=== PATIENT | female | born 1985 | race American Indian/Alaskan Native ===

== ENCOUNTER 2017-06-24 22:58 | Outpatient (CLI) | payer MEDICAID ==
[2017-06-24] MEDS ORDERED: LACTATED RINGERS 500 ML IV ONE (23:09)
[2017-06-24 23:14] VITALS: BP 134/68
[2017-06-25 00:17] LABS: Bilirubin,Urine NEG (Negative); Blood,Urine NEG (Negative); Color,Urine Straw (Yellow); Nitrite,Urine NEG (Negative); Protein,Urine <15 mg/dL mg/dL (Negative); Urobilinogen,Urine < 2.0 mg/dL (<2.0)
== END 2017-06-25 00:35 | disposition home or self-care (01) ==
LOC: TRG 22:58
PROVIDERS: ATTEND Obstetrics & Gynecology Gynecology
DX: O47.03 False labor before 37 completed weeks of gestation, third trimester (principal); Z3A.32 32 weeks gestation of pregnancy
CPT/HCPCS: 59025; 81001; J7120

== ENCOUNTER 2017-07-03 16:37 | Outpatient (CLI) | payer MEDICAID ==
[2017-07-03 17:25] LABS: Bacteria,Urine 1+ /HPF (Negative); Bilirubin,Urine NEG (Negative); Blood,Urine NEG (Negative); Color,Urine Yellow (Yellow); Mucus,Urine FEW /HPF; Nitrite,Urine NEG (Negative); Protein,Urine <15 mg/dL mg/dL (Negative); Urobilinogen,Urine < 2.0 mg/dL (<2.0)
[2017-07-03 17:40] VITALS: BP 145/76
[2017-07-03 17:43] LABS: Hematocrit 27.9 % (30.3-42.9); Hemoglobin 9.1 gm/dl (10.1-14.3); Mean Corpuscular HGB Conc 33 % (30-34); Mean Corpuscular Volume 74 fl (79-97); Platelet Count 262 K/mm3 (140-440); Red Blood Count 3.77 M/mm3 (3.65-5.03); Red Cell Distribution Width 17.6 % (13.2-15.2)
[2017-07-03 17:53] LABS: Mean Corpuscular Hemoglobin 24 pg (28-32)
[2017-07-03 17:55] LABS: Alanine Aminotransferase 21 units/L (7-56); Uric Acid 4.2 mg/dL (3.5-7.6)
[2017-07-03] MEDS ORDERED: TYLENOL PO ONE (18:00)
== END 2017-07-03 18:15 | disposition home or self-care (01) ==
LOC: TRG 16:37
PROVIDERS: ATTEND Obstetrics & Gynecology
DX: Z34.92 Encounter for supervision of normal pregnancy, unspecified, second trimester (principal); Z3A.25 25 weeks gestation of pregnancy
CPT/HCPCS: 36415; 59025; 81001; 82565; 83615; 84450; 84460; 84550; 85027

== ENCOUNTER 2017-07-08 13:56 | Observation (INO) | payer MEDICAID ==
[2017-07-08] MEDS ORDERED: LACTATED RINGERS 500 ML IV ONE (14:16)
--- NOTE | 2017-07-08 14:27 | History and Physical Report ---
History of Present Illness Date of examination: 07/08/17 Chief complaint: Painful contractions with pelvic pressure History of present illness: 31-year-old at 34+6 wks is sent from the clinic for cerclage removal, she is a [facility] patient. Patient with painful contractions and severe pelvic pressure. An attempt at cerclage removal in the office was unsuccessful due to patient discomfort, she was therefore sent to the hospital for cerclage removal. course has been unremarkable. 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 denies: smoking, alcohol abuse, prescription drug abuse, IV drug use - Obstetrical History Expected Date of Delivery: 08/13/17 Actual Gestation: 34 Week(s) 6 Day(s) : 5 Medications and Allergies Allergies Allergy/AdvReac Type Severity Reaction Status Date / Time sulfamethoxazole Allergy Anaphylaxis Verified 04/17/17 10:49 [From Bactrim] trimethoprim [From Bactrim] Allergy Anaphylaxis Verified 04/17/17 10:49 Home Medications Medication Instructions Recorded Confirmed Last Taken Type Vit-Fe Fumar-FA [ 1 each PO QDAY #30 tablet 10/09/13 06/24/17 06/24/17 Rx Vitamin] 1 tab Acetaminophen [Tylenol Extra 500 mg PO PRN PRN 04/17/17 06/24/17 04/17/17 11:30 History Strength] Omeprazole 20 mg PO QDAY 04/17/17 06/24/17 04/17/17 History Active Meds: Active Medications Lactated Ringer's (Lactated Ringers) 1,000 mls @ 125 mls/hr IV DIRECT BARBER Lactated Ringer's (Lactated Ringers) 500 mls @ 999 mls/hr IV BOLUS ONE Stop: 07/08/17 14:46 Review of Systems Constitutional: no fever, no chills, no fatigue, no weakness Cardiovascular: no chest pain, no orthopnea, no palpitations, no syncope, no lightheadedness, no shortness of breath, no dyspnea on exertion, no high blood pressure Respiratory: no cough, no excessive sputum, no shortness of breath, no dyspnea on exertion Gastrointestinal: no abdominal pain, no nausea, no vomiting, no heartburn, no indigestion Genitourinary: pelvic pain (pelvic pressure), contractions, no vaginal bleeding , no vaginal discharge, no leakage of fluid - Vital Signs Vital signs: Vital Signs Pulse Pulse Ox 103 H 97 07/08/17 14:08 07/08/17 14:08 Temp Pulse Resp BP Pulse Ox 107 H 98 07/08/17 14:18 07/08/17 14:18 - Physical Exam Cardiovascular: Regular rate, Normal S1, Normal S2 Lungs: Positive: Clear to auscultation, Normal air movement Abdomen: Positive: normal appearance, soft. Negative: distention, tenderness, guarding, rigidity Genitourinary (Female): Positive: normal external genitalia Vulva: both: normal Uterus: Positive: enlarged (EFW ~ 3200) Adnexa: both: normal Extremities: Positive: normal - Obstetrical FHR: category 1 Cervical Dilatation: 0 Results All other labs normal. Assessment and Plan A: 31 y/o at 34+6 wks with pelvic pressure and cerclage -Cat 1 tracing P: -Obtain IV access -Will try removal of cerclage under IV analgesia -If unsuccessful, we'll have to discuss with anesthesia about other options including removal in the OR -Consider IV steroid course -Obtain records - Patient Problems (1) 34 weeks gestation of Current Visit: Yes Status: Acute (2) Cervical cerclage suture present in third trimester Current Visit: Yes Status: Acute (3) Feeling pelvic pressure during in third trimester, antepartum Current Visit: Yes Status: Acute (4) Maternal morbid obesity in third trimester, antepartum Current Visit: Yes Status: Acute
[2017-07-08] MEDS ORDERED: SUBLIMAZE IV ONE (14:46)
[2017-07-08] MEDS ORDERED: SUBLIMAZE ONE (14:51)
--- NOTE | 2017-07-08 15:02 | Post Operative Note ---
Pre-op diagnosis: cerclage removal Post-op diagnosis: same Findings: Cerclage string tied at 12:00 with what appears to be PDS Procedure: Uncomplicated Cerclage removal with IV analgesics Anesthesia: other (IV fentanyl) Surgeon: NAYELY VELAZQUEZ Estimated blood loss: minimal Pathology: none Condition: stable Disposition: no change
[2017-07-08] MEDS: LACTATED RINGERS 1,000 ML IV SCH ×2 (16:03→23:08)
[2017-07-08] MEDS ORDERED: ZOFRAN IV PRN (17:05)
[2017-07-08] MEDS ORDERED: COLACE PO PRN (17:05)
[2017-07-08] MEDS ORDERED: SENOKOT S PO PRN (17:05)
[2017-07-08] MEDS ORDERED: TYLENOL PO PRN (17:05)
[2017-07-08] MEDS ORDERED: AMBIEN PO PRN (17:05)
[2017-07-08] MEDS ORDERED: SODIUM CHLORIDE FLUSH SYRINGE 10 ML IV PRN (17:05)
[2017-07-08] MEDS ORDERED: ALUM-MAG HYDROX-SIMETH 200-200-20MG/5ML PO PRN (17:05)
[2017-07-08] MEDS ORDERED: MYLICON PO PRN (17:05)
[2017-07-08] MEDS ORDERED: MILK OF MAGNESIA PO PRN (17:05)
--- NOTE | 2017-07-08 17:13 | Event Note ---
Date: 07/08/17 Patient s/p cerclage removal. I can find no record of prior BMZ course. Plan at this point is to start BMZ course.
[2017-07-08] MEDS ORDERED: CELESTONE SOLUSPAN IM SCH (18:00)
[2017-07-08] MEDS ORDERED: D5LR 1,000 ML IV SCH (18:00)
[2017-07-08 19:43] LABS: Basophils % (Auto) 0.2 % (0.0-1.8); Eosinophils % (Auto) 0.3 % (0.0-4.3); Hematocrit 29.1 % (30.3-42.9); Hemoglobin 9.6 gm/dl (10.1-14.3); Lymphocytes # (Auto) 1.8 K/mm3 (1.2-5.4); Lymphocytes % (Auto) 17.2 % (13.4-35.0); Mean Corpuscular HGB Conc 33 % (30-34); Mean Corpuscular Volume 75 fl (79-97); Monocytes # (Auto) 0.4 K/mm3 (0.0-0.8); Monocytes % (Auto) 4.4 % (0.0-7.3); Platelet Count 241 K/mm3 (140-440); Red Cell Distribution Width 17.5 % (13.2-15.2)
[2017-07-08 19:47] LABS: Mean Corpuscular Hemoglobin 25 pg (28-32)
--- NOTE | 2017-07-08 23:28 | Event Note ---
Date: 07/08/17 Status post cerclage removal, resting in bed comfortably. She has no contractions and feeling much better. She is s/p celestone course and will complete this tomorrow. On exam, no cervical change. Patient desired discharge home Discharge home at this time, she will follow up tomorrow for repeat Celestone shot
[2017-07-08 23:35] VITALS: BP 119/60
--- NOTE | 2017-07-08 23:35 | Discharge Summary ---
Providers - Providers Date of Admission: 07/08/17 18:51 Date of discharge: 07/08/17 Attending physician: NAYELY VELAZQUEZ Primary care physician: NAYELY VELAZQUEZ Hospitalization Reason for admission: IUP - (IUP at 34+5 weeks), observation (here for cerclage removal), other Hospital course: 31-year-old at 34+6 wks was sent from the clinic for cerclage removal, she is a [facility] patient. Patient with painful contractions and severe pelvic pressure. An attempt at cerclage removal in the office was unsuccessful due to patient discomfort, she was therefore sent to the hospital for cerclage removal. course has been unremarkable. She is status post in 2013 for breech and desires Cerclage was removed and under IV sedation Patient was started on steroid course She was observed on the floor and had no contractions x ~ 8 hrs She is discharged home in stable condition Condition at discharge: Good Disposition: DC-01 TO HOME OR SELFCARE - Discharge Diagnoses (1) 34 weeks gestation of Status: Acute (2) Cervical cerclage suture present in third trimester Status: Acute (3) Feeling pelvic pressure during in third trimester, antepartum Status: Acute (4) Maternal morbid obesity in third trimester, antepartum Status: Acute Plan - Provider Discharge Summary Activity: routine Diet: routine Instructions: other (she will need to return to the hospital on 07/09/17 to complete her steroid course) Additional instructions: [] Smoking cessation referral if applicable(refer to patient education folder for contact #) [] Refer to [facility] Booklet Call your doctor immediately for: * Fever > 100.5 * Heavy vaginal bleeding ( >1 pad per hour) * Severe persistent headache * Shortness of breath * Reddened, hot, painful area to leg or breast * Drainage or odor from incision. * Keep incision clean and dry at all times and follow doctor's instructions regarding bathing/showering - Follow up plan Follow up: EVERETT MARTINEZ MD [Staff Physician] - 7 Days
[2017-07-09] MEDS ORDERED: PRENATAL VITAMIN PO SCH (10:00)
== END 2017-07-09 00:02 | disposition home or self-care (01) ==
LOC: TRG 13:56 → LD 13:58 → TRG 18:51
PROVIDERS: ADMIT Obstetrics & Gynecology Gynecology; ATTEND Obstetrics & Gynecology Gynecology
DX: O62.9 Abnormality of forces of labor, unspecified (principal); O26.893 Other specified pregnancy related conditions, third trimester; R10.2 Pelvic and perineal pain; Z3A.34 34 weeks gestation of pregnancy
CPT/HCPCS: 36415; 85025; 86850; 86900; 86901; 96361; 96372; 96374; G0378; J0702; J3010; J7120

== ENCOUNTER 2017-07-16 06:43 | Outpatient (CLI) | payer OTHER ==
[2017-07-16] MEDS ORDERED: LACTATED RINGERS 500 ML IV ONE (06:52)
[2017-07-16 08:04] LABS: Hematocrit 28.8 % (30.3-42.9); Hemoglobin 9.4 gm/dl (10.1-14.3); Mean Corpuscular HGB Conc 33 % (30-34); Mean Corpuscular Volume 74 fl (79-97); Platelet Count 276 K/mm3 (140-440); Red Blood Count 3.91 M/mm3 (3.65-5.03); Red Cell Distribution Width 17.7 % (13.2-15.2)
[2017-07-16 08:09] LABS: Bacteria,Urine 1+ /HPF (Negative); Bilirubin,Urine NEG (Negative); Blood,Urine NEG (Negative); Color,Urine Yellow (Yellow); Mucus,Urine FEW /HPF; Nitrite,Urine NEG (Negative); Protein,Urine <15 mg/dL mg/dL (Negative); Urobilinogen,Urine < 2.0 mg/dL (<2.0)
[2017-07-16 08:19] LABS: Mean Corpuscular Hemoglobin 24 pg (28-32)
[2017-07-16 08:22] LABS: Alanine Aminotransferase 12 units/L (7-56); Uric Acid 4.2 mg/dL (3.5-7.6)
[2017-07-16] MEDS ORDERED: PERCOCET 5/325 PO ONE (08:35)
[2017-07-16 08:45] VITALS: BP 134/67
== END 2017-07-16 08:58 | disposition home or self-care (01) ==
LOC: TRG 06:43
PROVIDERS: ATTEND Obstetrics & Gynecology
DX: O26.893 Other specified pregnancy related conditions, third trimester (principal); R51 Headache; M79.89 Other specified soft tissue disorders; Z3A.35 35 weeks gestation of pregnancy
CPT/HCPCS: 36415; 59025; 81001; 82565; 83615; 84450; 84460; 84550; 85027

== ENCOUNTER 2017-07-19 13:00 | Outpatient (CLI) | payer OTHER ==
[2017-07-19 13:36] VITALS: BP 131/77
[2017-07-19] MEDS ORDERED: LACTATED RINGERS 500 ML IV ONE (14:00)
--- NOTE | 2017-07-20 08:52 | Ultrasound Report ---
ULTRASOUND BIOPHYSICAL PROFILE: History: Leaking of fluid, rupture of membranes Technique: Transabdominal ultrasound with Doppler interrogation. 2 - breathing movements 2 - movements 2 - posture and tone 2 - Qualitative amniotic fluid volume 8 - TOTAL SCORE OF POSSIBLE 8 Heart Rate (bpm) 155
--- NOTE | 2017-07-20 08:52 | Ultrasound Report ---
ULTRASOUND OB LIMITED History: Leaking of fluid, rupture of membranes Technique: Transabdominal ultrasound with Doppler interrogation. Gestation: Single Position: Cephalic Amniotic Fluid: Normal XANDER = 15.0 cm Heart Rate: 155 BPM
== END 2017-07-19 15:48 | disposition home or self-care (01) ==
LOC: TRG 13:00
PROVIDERS: ATTEND Obstetrics & Gynecology Gynecology
DX: O42.92 Full-term premature rupture of membranes, unspecified as to length of time between rupture and onset of labor (principal); Z3A.36 36 weeks gestation of pregnancy
CPT/HCPCS: 59025; 76815; 76819

== ENCOUNTER 2017-07-29 20:38 | Outpatient (CLI) | payer MEDICAID ==
[2017-07-29 21:00] VITALS: BP 129/76
[2017-07-29] MEDS ORDERED: VISTARIL PO ONE (21:57)
== END 2017-07-29 22:07 | disposition home or self-care (01) ==
LOC: TRG 20:38
PROVIDERS: ATTEND Obstetrics & Gynecology
DX: O62.9 Abnormality of forces of labor, unspecified (principal); Z3A.37 37 weeks gestation of pregnancy
CPT/HCPCS: Q0177

== ENCOUNTER 2017-08-03 08:41 | Observation (INO) | payer MEDICAID ==
[2017-08-03 09:08] VITALS: BP 131/83
== END 2017-08-03 10:25 | disposition home or self-care (01) ==
LOC: LD 08:41 → INTOOBSV 08:41
PROVIDERS: ADMIT Obstetrics & Gynecology; ATTEND Obstetrics & Gynecology
DX: O34.33 Maternal care for cervical incompetence, third trimester (principal); O13.3 Gestational [pregnancy-induced] hypertension without significant proteinuria, third trimester; Z3A.38 38 weeks gestation of pregnancy
CPT/HCPCS: 59025; G0378; G0379

== ENCOUNTER 2017-08-09 09:00 | Inpatient (IN) | payer MEDICAID ==
[2017-08-09] MEDS ORDERED: STADOL IV PRN (10:41)
[2017-08-09] MEDS ORDERED: BRETHINE SUB-Q PRN (10:41)
[2017-08-09] MEDS ORDERED: ZOFRAN IV PRN (10:41)
[2017-08-09] MEDS ORDERED: BRETHINE IVP PRN (10:41)
[2017-08-09] MEDS ORDERED: PHENERGAN PO PRN (10:41)
[2017-08-09] MEDS ORDERED: XYLOCAINE 2% INFILTRATI ONE (10:41)
[2017-08-09] MEDS ORDERED: SUBLIMAZE IV PRN (10:41)
[2017-08-09] MEDS ORDERED: NARCAN 0.4 MG/1 ML IV PRN (10:41)
[2017-08-09] MEDS ORDERED: ePHEDrine SULFATE IV PRN (10:41)
[2017-08-09] MEDS ORDERED: MINERAL OIL PO PRN (10:41)
--- NOTE | 2017-08-09 10:52 | History and Physical Report ---
History of Present Illness Date of examination: 08/09/17 Date of admission: 08/09/17 09:00 Chief complaint: Induction of labor History of present illness: Pt is a 31yo BF EDC 08/16/17; EGA 39 0/7 weeks presents for induction of labor due to Morbid Obesity Class3, Incompetent cervix with cerclage and h/o PTD x 3. She received care at [facility] since 24 weeks , and co-managed by [facility]. records are available and GBS is Negative. Past History Past Surgical History: section Family/Genetic History: none Social history: no significant social history, single - Obstetrical History Expected Date of Delivery: 08/16/17 Actual Gestation: 39 Week(s) 1 Day(s) : 7 Medications and Allergies Allergies Allergy/AdvReac Type Severity Reaction Status Date / Time sulfamethoxazole Allergy Anaphylaxis Verified 04/17/17 10:49 [From Bactrim] trimethoprim [From Bactrim] Allergy Anaphylaxis Verified 04/17/17 10:49 Home Medications Medication Instructions Recorded Confirmed Last Taken Type Vit-Fe Fumar-FA [ 1 each PO QDAY #30 tablet 10/09/13 08/03/17 08/03/17 08:00 Rx Vitamin] Acetaminophen [Tylenol Extra 500 mg PO PRN PRN 04/17/17 08/03/17 04/17/17 11:30 History Strength] Omeprazole 20 mg PO QDAY 04/17/17 08/03/17 04/17/17 History Active Meds: Active Medications Butorphanol Tartrate (Stadol) 2 mg IV Q2H PRN PRN Reason: Pain , Severe (7-10) Ephedrine Sulfate (Ephedrine Sulfate) 10 mg IV Q2M PRN PRN Reason: Hypotension Fentanyl (Sublimaze) 100 mcg IV Q2H PRN PRN Reason: Labor Pain Lactated Ringer's (Lactated Ringers) 1,000 mls @ 125 mls/hr IV DIRECT BARBER Oxytocin/Sodium Chloride (Pitocin/Ns 20 Unit/1000ml Drip) 20 units in 1,000 mls @ 125 mls/hr IV DIRECT BARBER Oxytocin/Sodium Chloride (Pitocin/Ns 30 Unit/500ml) 30 units in 500 mls @ 1 mls /hr IV TITR BARBER; Protocol Lidocaine (Xylocaine 2%) 20 ml INFILTRATI ONCE ONE Stop: 08/09/17 10:42 Mineral Oil (Mineral Oil) 30 ml PO QHS PRN PRN Reason: Constipation Naloxone HCl (Narcan 0.4 Mg/1 Ml) 0.1 mg IV Q2MIN PRN PRN Reason: Res Rate </= 8 or 02 SAT < 92% Ondansetron HCl (Zofran) 4 mg IV Q8H PRN PRN Reason: Nausea And Vomiting Promethazine HCl (Phenergan) 25 mg PO Q6H PRN PRN Reason: Nausea And Vomiting Terbutaline Sulfate (Brethine) 0.25 mg SUB-Q ONCE PRN PRN Reason: Hyperstimulation/Hypertonicity Terbutaline Sulfate (Brethine) 0.25 mg IVP ONCE PRN PRN Reason: Hyperstimulation/Hypertonicity Review of Systems All systems: negative - Vital Signs Vital signs: Vital Signs Temp Pulse Resp BP Pulse Ox 96.6 F L 95 H 19 134/77 98 08/09/17 09:38 08/09/17 09:38 08/09/17 09:38 08/09/17 09:38 08/09/17 09:38 Temp Pulse Resp BP Pulse Ox 96.6 F L 92 H 19 134/77 99 08/09/17 09:38 08/09/17 10:48 08/09/17 09:38 08/09/17 09:39 08/09/17 10:48 - Physical Exam Breasts: Positive: deferred Cardiovascular: Regular rate Lungs: Positive: Clear to auscultation Abdomen: Positive: normal appearance Genitourinary (Female): Positive: normal external genitalia Vagina: Positive: normal moisture Uterus: Positive: enlarged Extremities: Positive: normal - Obstetrical FHR: category 1 Uterine Contraction Monitor Mode: External Results Result Diagrams: 08/09/17 11:45 All other labs normal. Assessment and Plan - Patient Problems (1) 39 weeks gestation of Onset Date: 08/09/17 Current Visit: Yes Status: Acute Plan to address problem: A: IUP @ 39 0/7 weeks Previous C Section - Desires TOLAC Morbid Obesity P: Admit to L&D for pitocin induction of labor (2) Previous delivery affecting Onset Date: 08/09/17 Current Visit: Yes Status: Acute (3) Maternal morbid obesity in third trimester, antepartum Onset Date: 08/09/17 Current Visit: No Status: Acute
[2017-08-09] MEDS ORDERED: PITOCin/NS 20 UNIT/1000ML DRIP 20 UNITS/1,000 ML BAG IV SCH (11:00)
[2017-08-09] MEDS: PITOCin/NS 30 UNIT/500ML 30 UNITS/500 ML BAG IV SCH (12:10)
[2017-08-09] MEDS: LACTATED RINGERS 1,000 ML IV SCH (12:11)
[2017-08-09 12:40] LABS: Hematocrit 28.4 % (30.3-42.9); Hemoglobin 9.4 gm/dl (10.1-14.3); Mean Corpuscular HGB Conc 33 % (30-34); Mean Corpuscular Volume 74 fl (79-97); Platelet Count 331 K/mm3 (140-440); Red Blood Count 3.86 M/mm3 (3.65-5.03); Red Cell Distribution Width 18.2 % (13.2-15.2)
[2017-08-09 12:46] LABS: Mean Corpuscular Hemoglobin 24 pg (28-32)
[2017-08-10] MEDS: LACTATED RINGERS 1,000 ML IV SCH ×3 (04:25→17:03)
[2017-08-10] MEDS: PITOCin/NS 30 UNIT/500ML 30 UNITS/500 ML BAG IV SCH ×2 (09:41→10:27)
--- NOTE | 2017-08-10 10:04 | Progress Note ---
Assessment and Plan - Patient Problems (1) 39 weeks gestation of Onset Date: 08/09/17 Current Visit: Yes Status: Acute Plan to address problem: A: IUP @ 39 1/7 weeks Previous C Section - Desires TOLAC Morbid Obesity P: Continue with pitocin induction of labor (2) Previous delivery affecting Onset Date: 08/09/17 Current Visit: Yes Status: Acute (3) Maternal morbid obesity in third trimester, antepartum Onset Date: 08/09/17 Current Visit: No Status: Acute Subjective - Subjective Date of service: 08/10/17 Principal diagnosis: IUP @ 39 1/7 weeks; Previous C Section Interval history: Pt is a 31yo BF EDC 08/16/17; EGA 39 1/7 weeks presents for induction of labor. She is currently on pitocin 4mu/min and diego irregularly. Patient reports: loss of fluid, movement normal, contractions, no new complaints, no vaginal bleeding Objective - Vital Signs Vital Signs: Vital Signs - 12hr 08/09/17 08/09/17 08/10/17 22:07 22:09 04:00 Temperature 98.2 F Pulse Rate 85 85 86 Respiratory 18 Rate Blood Pressure 119/67 Blood Pressure 131/71 [Right] O2 Sat by Pulse 97 99 Oximetry 08/10/17 08/10/17 08/10/17 04:31 04:32 06:11 Temperature 98.1 F Pulse Rate 88 85 83 Respiratory 18 Rate Blood Pressure 131/71 130/75 Blood Pressure 130/75 [Right] O2 Sat by Pulse 100 Oximetry 08/10/17 08/10/17 08/10/17 07:42 07:46 07:47 Temperature 98.2 F Pulse Rate 82 82 89 Respiratory 18 Rate Blood Pressure 131/72 Blood Pressure 131/72 [Right] O2 Sat by Pulse 100 100 Oximetry 08/10/17 08/10/17 08/10/17 07:52 07:57 08:02 Temperature Pulse Rate 86 85 87 Respiratory Rate Blood Pressure Blood Pressure [Right] O2 Sat by Pulse 100 100 100 Oximetry 08/10/17 08/10/17 08/10/17 08:16 08:21 08:26 Temperature Pulse Rate 86 93 H 86 Respiratory Rate Blood Pressure Blood Pressure [Right] O2 Sat by Pulse 99 100 98 Oximetry 08/10/17 08/10/17 08/10/17 08:31 08:36 08:41 Temperature Pulse Rate 89 91 H 96 H Respiratory Rate Blood Pressure Blood Pressure [Right] O2 Sat by Pulse 98 98 99 Oximetry 08/10/17 08/10/17 08/10/17 08:46 08:51 08:56 Temperature Pulse Rate 86 90 88 Respiratory Rate Blood Pressure Blood Pressure [Right] O2 Sat by Pulse 99 98 99 Oximetry 08/10/17 08/10/17 08/10/17 09:01 09:06 09:11 Temperature Pulse Rate 88 85 89 Respiratory Rate Blood Pressure Blood Pressure [Right] O2 Sat by Pulse 97 100 97 Oximetry 08/10/17 08/10/17 09:12 09:16 Temperature Pulse Rate 88 92 H Respiratory Rate Blood Pressure Blood Pressure [Right] O2 Sat by Pulse 93 97 Oximetry - Exam FHR: category 1 Uterine Contraction Monitor Mode: External Cervical Dilatation: 3 Cervical Effacement Percentage: 70 station: -2 Uterine Contraction Pattern: Irregular Uterine Tone Measurement Phase: Contraction Uterine Contraction Intensity: Mild - Labs Labs: Abnormal Labs 08/09/17 11:45 WBC 14.4 H Hgb 9.4 L Hct 28.4 L MCV 74 L MCH 24 L RDW 18.2 H Laboratory Results - last 24 hr 08/09/17 08/09/17 08/09/17 11:45 11:45 11:45 WBC 14.4 H RBC 3.86 Hgb 9.4 L Hct 28.4 L MCV 74 L MCH 24 L MCHC 33 RDW 18.2 H Plt Count 331 RPR Nonreactive Blood Type B POSITIVE Antibody Screen Negative
[2017-08-10] MEDS ORDERED: SUBLIMAZE IV PRN (11:39)
[2017-08-10] MEDS ORDERED: ePHEDrine SULFATE IV PRN (13:00)
[2017-08-10] MEDS ORDERED: NARCAN 2 MG/2 ML IV PRN (13:00)
--- NOTE | 2017-08-10 13:00 | Anesthesia Consultation ---
Anesthesia Consult and Med Hx Date of service: 08/10/17 - Airway Anesthetic Teeth Evaluation: Good ROM Head & Neck: Adequate Mental/Hyoid Distance: Adequate Mallampati Class: Class III Intubation Access Assessment: Possibly Difficult - Pre-Operative Health Status ASA Pre-Surgery Classification: ASA3 Proposed Anesthetic Plan: Epidural, Spinal - Pulmonary Hx Asthma: Yes COPD: No Hx Pneumonia: No - Cardiovascular System Hx Hypertension: Yes (preg induced) - Central Nervous System Hx Seizures: No Hx Psychiatric Problems: No - Endocrine Hx Renal Disease: No Hx End Stage Renal Disease: No Hx Hypothyroidism: No Hx Hyperthyroidism: No - Hematic Hx Anemia: No Hx Sickle Cell Disease: No - Other Systems Hx Alcohol Use: No Hx Obesity: Yes (Morbid obesity, BMI 54.7)
[2017-08-10] MEDS ORDERED: fentaNYL-BUPIV 2 MCG/ML-0.125% 200 MCG/100 ML BAG EPIDURAL SCH (14:00)
[2017-08-10] MEDS ORDERED: TYLENOL PO ONE (17:30)
[2017-08-10] MEDS ORDERED: ceFAZolin 2 GM in NACL 0.9% 100 ML IV ONE (17:30)
[2017-08-10] MEDS ORDERED: ANCEF/STERILE WATER 2 GM/20 ML 2 GM/20 ML SYRINGE IV SCH (18:00)
[2017-08-10] MEDS ORDERED: ZOFRAN IV PRN (19:38)
[2017-08-10] MEDS ORDERED: BENADRYL PO PRN (19:38)
[2017-08-10] MEDS ORDERED: TUCKS PAD TP PRN (19:38)
[2017-08-10] MEDS ORDERED: NORCO 5/325 PO PRN (19:38)
[2017-08-10] MEDS ORDERED: PHENERGAN PR PRN (19:38)
[2017-08-10] MEDS ORDERED: PHENERGAN PO PRN (19:38)
[2017-08-10] MEDS ORDERED: TYLENOL PO PRN (19:38)
[2017-08-10] MEDS ORDERED: MILK OF MAGNESIA PO PRN (19:38)
[2017-08-10] MEDS ORDERED: DULCOLAX PR PRN (19:38)
[2017-08-10] MEDS ORDERED: LANSINOH TP PRN (19:38)
--- NOTE | 2017-08-10 19:38 | Procedure Note ---
OB Delivery Note - Delivery Date of Delivery: 08/10/17 Surgeon: EVERETT MARTINEZ Estimated blood loss: 200cc - Vaginal Delivery presentation: vertex Delivery position: OA Intrapartum events: febrile- temp >100.3, PROM->1hr before delivery, mult.variable deceleratio Delivery induction: oxytocin Delivery augmentation: rupture of membranes, pitocin Delivery monitor: external FHT, internal uterine Route of delivery: Delivery placenta: spontaneous Delivery cord: nuchal cord, 3 umbilical vessels Episiotomy: none Delivery laceration: none Anesthesia: epidural Delivery comments: delivered OA and placed on Mom's chest for [id number] bonding and delayed cord clamping - Infant A at 1 minute: 8 at 5 minutes: 9 Infant Gender: Male (3198gms)
[2017-08-10] MEDS ORDERED: PITOCin/NS 20 UNIT/1000ML DRIP 20 UNITS/1,000 ML BAG IV SCH (20:00)
[2017-08-10] MEDS ORDERED: SODIUM CHLORIDE FLUSH SYRINGE 10 ML IV NR (20:00)
[2017-08-10] MEDS: MOTRIN PO SCH (20:45)
[2017-08-10] MEDS: SENOKOT S PO SCH (20:45)
[2017-08-10] MEDS ORDERED: COLACE PO SCH (22:00)
[2017-08-10] MEDS: FEOSOL PO SCH (23:11)
[2017-08-11] MEDS: MOTRIN PO SCH ×2 (02:10→16:09)
[2017-08-11] MEDS ORDERED: M-M-R II VACCINE SUB-Q ONE (06:00)
[2017-08-11] MEDS ORDERED: BOOSTRIX IM ONE (06:00)
[2017-08-11 07:33] LABS: Hematocrit 26.2 % (30.3-42.9); Hemoglobin 8.4 gm/dl (10.1-14.3)
[2017-08-11] MEDS: FEOSOL PO SCH (08:47)
[2017-08-11] MEDS: PRENATAL VITAMIN PO SCH (08:47)
--- NOTE | 2017-08-11 09:34 | Progress Note ---
Assessment and Plan - Patient Problems (1) 39 weeks gestation of Onset Date: 08/09/17 Current Visit: Yes Status: Resolved (2) Previous delivery affecting Onset Date: 08/09/17 Current Visit: Yes Status: Resolved (3) Maternal morbid obesity in third trimester, antepartum Onset Date: 08/09/17 Current Visit: No Status: Chronic (4) (vaginal after ) Onset Date: 08/11/17 Current Visit: Yes Status: Resolved Plan to address problem: A: S/P () - PPD #1 Doing well Asymptomatic anemia - stable P: May go home tomorrow. Subjective - Subjective Date of service: 08/11/17 Principal diagnosis: s/p - PPD #1 Interval history: Pt is feeling well without complaints. Bleeding improved. Patient reports: appetite normal, voiding normally, pain well controlled, flatus , ambulating normally [place]: doing well, nursing well, bottle feeding Objective - Vital Signs Latest vital signs: Vital Signs Temp Pulse Resp BP Pulse Ox 08/11/17 04:42 98.2 F 81 20 105/65 97 08/10/17 22:57 99.5 F 95 H 20 131/61 96 08/10/17 20:23 123 H 104/52 08/10/17 20:08 118 H 113/57 08/10/17 19:53 127 H 129/74 08/10/17 19:46 124 H 100 08/10/17 19:44 118 H 140/65 08/10/17 19:42 131 H 164/78 08/10/17 19:41 129 H 100 08/10/17 19:38 133 H 142/83 08/10/17 19:29 125 H 127/77 08/10/17 19:18 120 H 89 08/10/17 19:13 117 H 98 08/10/17 19:08 124 H 100 08/10/17 19:03 115 H 100 08/10/17 18:58 117 H 100 08/10/17 18:53 115 H 100 08/10/17 18:48 120 H 98 08/10/17 18:43 115 H 99 08/10/17 18:38 112 H 99 08/10/17 18:33 117 H 100 08/10/17 18:30 101.1 F H 02/28/18 18:28 126 H 100 08/10/17 18:23 123 H 100 08/10/17 18:18 128 H 100 08/10/17 18:16 5 L 08/10/17 18:13 140 H 100 08/10/17 18:10 123 H 78 L 08/10/17 18:08 134 H 95 08/10/17 18:03 82 71 L 08/10/17 17:46 53 L 74 L 08/10/17 17:41 58 L 46 L 08/10/17 17:39 89 08/10/17 17:38 111 H 111/51 08/10/17 17:36 128 H 83 L 08/10/17 17:31 112 H 100 08/10/17 17:26 123 H 74 L 08/10/17 17:24 98.9 F 20 08/10/17 17:21 83 69 L 08/10/17 17:09 136 H 132/59 08/10/17 16:07 98.5 F 18 08/10/17 14:32 97 H 0 L 08/10/17 14:28 94 H 96 08/10/17 14:25 100 H 24 L 08/10/17 14:23 109 H 100 08/10/17 14:18 90 100 08/10/17 14:13 91 H 100 08/10/17 14:08 97 H 100 08/10/17 14:03 106 H 100 08/10/17 13:58 108 H 100 08/10/17 13:56 109 H 104/59 08/10/17 13:53 98 H 118/58 100 08/10/17 13:48 97 H 100 08/10/17 13:47 91 H 85 08/10/17 13:45 97 H 115/56 08/10/17 13:43 93 H 100 08/10/17 13:38 107 H 97 08/10/17 13:33 91 H 100 08/10/17 13:28 87 99 08/10/17 13:23 90 100 08/10/17 13:18 91 H 100 08/10/17 13:13 98 H 99 08/10/17 13:08 105 H 80 L Intake and Output 08/10/17 08/11/17 08/11/17 22:59 06:59 14:59 Intake Total 522.817 Balance 522.817 Intake: IV 522.817 Lactated Ringers 1,000 ml 472.917 @ 125 mls/hr IV DIRECT BARBER Rx#:[id number] PITOCin/NS 30 UNIT/500ML 49.9 30 units In 500 ml @ 1 MILLIUNITS/MIN 1 mls/hr IV TITR BARBER Rx#:[id number] Other: Estimated Blood Loss 200 - Exam Breasts: Present: deferred Cardiovascular: Present: Regular rate Lungs: Present: Clear to auscultation Abdomen: Present: normal appearance, soft Uterus: Present: normal, firm, fundal height below umbilicus Extremities: Present: normal - Labs Labs: Abnormal lab results 08/11/17 Range/Units 06:55 Hgb 8.4 L (10.1-14.3) gm/dl Hct 26.2 L (30.3-42.9) % Laboratory Tests 08/09/17 08/09/17 08/09/17 11:45 11:45 11:45 WBC 14.4 H RBC 3.86 Hgb 9.4 L Hct 28.4 L MCV 74 L MCH 24 L MCHC 33 RDW 18.2 H Plt Count 331 RPR Nonreactive Blood Type B POSITIVE Antibody Screen Negative 08/11/17 06:55 WBC RBC Hgb 8.4 L Hct 26.2 L MCV MCH MCHC RDW Plt Count RPR Blood Type Antibody Screen
[2017-08-12] MEDS: FEOSOL PO SCH ×2 (01:57→12:02)
[2017-08-12] MEDS: MOTRIN PO SCH ×2 (01:57→12:02)
[2017-08-12] MEDS: SENOKOT S PO SCH (01:59)
--- NOTE | 2017-08-12 10:42 | Discharge Summary ---
Providers - Providers Date of Admission: 08/09/17 09:00 Date of discharge: 08/12/17 Attending physician: EVERETT MARTINEZ Primary care physician: EVERETT MARTINEZ Hospitalization Reason for admission: induction of labor, IUP at term Delivery: Episiotomy: none Laceration: none Other procedures: none complications: none Discharge diagnosis: IUP at term delivered, baby: male Hospital course: Unremarkable. Condition at discharge: Good Disposition: DC-01 TO HOME OR SELFCARE - Discharge Diagnoses (1) 39 weeks gestation of Status: Resolved (2) Previous delivery affecting Status: Resolved (3) Maternal morbid obesity in third trimester, antepartum Status: Chronic (4) (vaginal after ) Status: Resolved Plan - Discharge Medications Prescriptions: Ferrous Sulfate [Feosol 325 MG tab] 325 mg PO BID #60 tablet Ibuprofen [Motrin 600 MG tab] 600 mg PO Q6H #30 tablet Vit-Fe Fumar-FA [ Vitamin] 1 each PO QDAY #30 tablet - Provider Discharge Summary Activity: routine, no sex for 6 weeks, no heavy lifting 4 weeks, no strenuous exercise Diet: routine Instructions: routine Additional instructions: [] Smoking cessation referral if applicable(refer to patient education folder for contact #) [] Refer to [facility] Booklet Call your doctor immediately for: * Fever > 100.5 * Heavy vaginal bleeding ( >1 pad per hour) * Severe persistent headache * Shortness of breath * Reddened, hot, painful area to leg or breast * Drainage or odor from incision. * Keep incision clean and dry at all times and follow doctor's instructions regarding bathing/showering - Follow up plan Follow up: EVERETT MARTINEZ MD [Primary Care Provider] - 6 Weeks
[2017-08-12] MEDS: PRENATAL VITAMIN PO SCH (12:02)
[2017-08-12 18:05] VITALS: BP 134/79
== END 2017-08-12 18:20 | disposition home or self-care (01) | DRG 774 ==
LOC: LD 09:00 → OB 08-10 21:25
PROVIDERS: ADMIT Obstetrics & Gynecology; ATTEND Obstetrics & Gynecology
PROC: 10E0XZZ Delivery of Products of Conception, External Approach (ICD-10-PCS; principal; 2017-08-10)
PROC: 3E0R3BZ Introduction of Anesthetic Agent into Spinal Canal, Percutaneous Approach (ICD-10-PCS; 2017-08-10)
PROC: 00HU33Z Insertion of Infusion Device into Spinal Canal, Percutaneous Approach (ICD-10-PCS; 2017-08-10)
PROC: 3E033VJ Introduction of Other Hormone into Peripheral Vein, Percutaneous Approach (ICD-10-PCS; 2017-08-10)
DX: O75.2 Pyrexia during labor, not elsewhere classified (principal); O42.02 Full-term premature rupture of membranes, onset of labor within 24 hours of rupture; O76 Abnormality in fetal heart rate and rhythm complicating labor and delivery; O69.81X0 Labor and delivery complicated by cord around neck, without compression, not applicable or unspecified; O34.211 Maternal care for low transverse scar from previous cesarean delivery; O99.02 Anemia complicating childbirth; D64.9 Anemia, unspecified; O99.214 Obesity complicating childbirth; E66.01 Morbid (severe) obesity due to excess calories; Z68.43 Body mass index [BMI] 50.0-59.9, adult; Z37.0 Single live birth; Z3A.39 39 weeks gestation of pregnancy
CPT/HCPCS: 36415; 85014; 85018; 85027; 86592; 86850; 86900; 86901; 99211; G0463; J0690; J2590; J3010; J7120